=== PATIENT | female | born 1945 ===

== ENCOUNTER 2016-09-08 10:32 | Inpatient (IN) | payer MEDICARE ==
[~2016-09-08] VITALS: Ht 162.5 cm; Wt 44.1 kg
--- NOTE | ~2016-09-08 | DS ---
[place], [place] DISCHARGE SUMMARY NAME: YEHUDA AMANDA [facility] #: [id number] UNIT #: [id number] ROOM: 311 DOCTOR: FRANCISCO JAVIER MORELAND MD BIRTHDATE: [birth year] DOS: 09/11/2016 CHIEF COMPLAINT: "I'm sick. I don't know what's wrong with me." HISTORY OF PRESENT ILLNESS: This is a 70-year-old white female who presented to the Emergency Room at [facility] due to worsening changes in mental status and possible placement. The patient reported that she has been feeling sick, but was not able to explain exactly what she meant by this. She has been very anxious and increasingly short of breath. She has not been sleeping or eating well and does seem to have worsening depression. The patient also was found to be very confused and disoriented. She was admitted to further evaluate her mental status and determine the appropriate placement plan. PAST MEDICAL HISTORY: Remarkable for significant generalized anxiety, COPD, depression, nicotine abuse and hypertension. SUMMARY OF THE HOSPITAL COURSE: The patient was initially admitted to the hospital on the U and her Celexa was increased by Floyd Cano. Additionally her BuSpar was changed from p.r.n. to schedule at a dose of 5 mg 3 times daily. After evaluating her, though after the first night it was quite evident that her sleep and appetite were very poor and the depression was significant, so the Celexa was discontinued in lieu of Remeron 15 mg at bedtime, knowing that this would dramatically improve sleep and appetite. Additionally, her confusion was such that it was evident that dementia was present, so Exelon patch 4.6 mg was initiated to help maintain or slow the progression of cognitive loss, behavioral changes and also it will improve ADL maintenance. Because of the significant dementia Dr. Harvinder Srinivasan, psychologist, was consulted for competency and he did feel that a guardianship would be warranted. Family was very supportive and was willing to make every effort to have her return home and put into place factors that would improve her ability to remain safe at home. Once this was done it was felt that she could safely return to her home situation. FINAL DIAGNOSES: Major depression, recurrent; generalized anxiety disorder and Alzheimer dementia. DISPOSITION: All of her prescriptions have been escribed to [place] [facility]. She will follow up in the community per Transmitter Supervisor. [place], [place] DISCHARGE SUMMARY NAME: YEHUDA AMANDA UNIT #: [id number] ROOM: 311 DOCTOR: FRANCISCO JAVIER MORELAND MD BIRTHDATE: [birth year] FRANCISCO JAVIER MORELAND MD CM:DISCHARG 2 43 FRANCISCO JAVIER MORELAND MD 09/11/161943 interface
--- NOTE | ~2016-09-08 | PR ---
[place], [place] PROGRESS NOTE NAME: YEHUDA AMANDA UNIT #: [id number] ROOM: 311 DOCTOR: JAS ARCEO BIRTHDATE: [birth year] DOS: 09/10/2016 CHIEF COMPLAINT: The patient was nonverbal. She is sleeping in the 24-hour observation room. SUMMARY OF VISIT: The patient was assessed in the observation room. She has been physically aggressive, redirectable, but difficult at times to redirect, accusatory towards staff, very delusional and paranoid. Dr. Srinivasan saw her yesterday and deemed her to be incompetent to make decisions about her healthcare or wellbeing. 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 MENTAL STATUS: She is alert to name only, wildly labile with her mood, physical aggression, can get very agitated, almost manicky. PLAN: I started her on Remeron and Exelon yesterday. She is tolerating these well. I also added BuSpar because she has got some COPD, breathing issues going on. I was hoping that that would help with anxiety related to breathing, we will see how this goes. I am going to ahead and start some Risperdal 0.5 mg q.12 to see if I can bring down the physical aggression and psychosis. Also found that she is severely vitamin D deficient, I will get her started on some vitamin D, and double check and make sure that we have had a urine on her to rule out UTI that is making this worse. Son did mention that this has been progressively getting worse and this behavior is not new to him. We will continue to try to redirect and go from there. CANDELARIA ARCEO CNP CM:PNTRANS [id number] JAS ARCEO 09/10/[id number] interface
--- NOTE | ~2016-09-08 | CON ---
[place], [place] REPORT OF CONSULTATION [facility]: [id number] UN[facility] #: [id number] ROOM: 311 DOCTOR: YAMINI URIAS ED.D (MATHEW) BIRTHDATE: [birth year] DOS: 09/09/2016 HISTORY OF PRESENT ILLNESS: The patient is a 70-year-old female referred by Dr. Moreland for competency evaluation. At the present time, this patient is on the [facility] Unit at [facility]. She is and has 1 son and 1 granddaughter. She presently resides in [place], [place]. She was employed at one time at [employer] in [place], [place]. Her family physician is Dr. Yadav in [place], [place]. Her medical history is pertinent for dementia, hypertension, anxiety, depression and COPD. She is allergic to MORPHINE and SULFA type drugs. MEDICATIONS: Include verapamil, Ativan, lisinopril, Celexa, Spiriva, Zofran, Symbicort, Megace, and Zantac. SOCIAL HISTORY: This patient does not appear to have any significant substance abuse issues, which will impair her cognitive status. MENTAL STATUS EXAMINATION: This patient was awake, alert and oriented to person only. She thought she was in [place], [place]. She had no idea of the year or the date. She had no idea of the president. She indicated to me that she had a great deal of difficulty with her memory, and she could not remember my name after numerous repetitions on my part. She clearly suffers from dementia and clearly is not competent to make informed healthcare decisions. I did complete guardianship papers and discussed this with her . DIAGNOSES: Major neurocognitive disorder -- Alzheimer's disease. RECOMMENDATIONS: In my opinion, this patient is not competent to make informed healthcare decisions. Thank you very much for this consult. YAMINI URIAS ED.D CM:CONSTR:REPORT OF CONSULTATION 1058 09/10/16 0333 interface FRANCISCO JAVIER MORELAND MD
--- NOTE | ~2016-09-08 | WRIGHTHP ---
[place], [place] PATIENT HISTORY AND PHYSICAL EXAM NAME: YEHUDA AMANDA [facility] #: [id number] UNIT #: [id number] ROOM: 311 DOCTOR: JAS ARCEO BIRTHDATE: [birth year] DOS: 09/08/2016 HISTORY OF PRESENT ILLNESS: This is a 70-year-old female presenting to [facility] ER for Behavior Health placement. The patient states she was taken to the hospital because she was very sick and unable to explain why she was sick. She was unsure why she was brought to the unit. States that she has a history of anxiety and her anxiety has become worse with increasingly shortness of breath. She does have a diagnosis of COPD with tobacco abuse and states that she has been using her inhalers nonstop and that her anxiety is worse. I am wondering if the steroid medication and the inhalers since she is using them more than she should is stimulating her feelings of anxiety as well. Her is a otr owner operator truck driver and is at home for long periods of time. The patient apparently has been noncompliant with her medications and she is on copious amounts of benzos, lorazepam, Klonopin, low dose Celexa, p.r.n. BuSpar, which is doing nothing that needs to be scheduled. The patient was admitted to behavioral health unit to rule out organic factors and stabilize on medications. PAST MEDICAL HISTORY: Anxiety, COPD, depression, tobacco abuse, and hypertension. DIAGNOSES: Generalized anxiety and altered mental status. MENTAL STATUS: The patient is alert and oriented to person, not place or time quite tearful asking for her , then talking nonsensical, difficult to redirect at times. Body is very cachectic. She states that her sleep is good, then bad, then good, then bad. Poor appetite, very tearful, very anxious. PLAN: Last night, I increased her Celexa. I am going to actually discontinue the Celexa and switch it to Remeron to help with depression, aid in sleep and stimulate her appetite. After my assessment this morning, I have asked that Dr. Srinivasan be consulted for competency. I am going to go ahead and start her on Exelon patch 4.6 mg q.a.m. Looks like the labs from [place] are within normal limits as far as her UA, CBC, CMP. There is a CT of the head; however, ordered as well. I am going to go ahead and order her BuSpar scheduled. This will help some of her anxiety, but with her COPD it will increase her drive to breathe and maybe make her breath a little more satisfying, so she does not need the inhalers this much, which could be triggering some of her anxiety and panic attacks, but also give her some relief with her breathing. We will see how she does over the next 24 hours and go from there. [place], [place] PATIENT HISTORY AND PHYSICAL EXAM NAME: YEHUDA AMANDA UNIT #: [id number] ROOM: 311 DOCTOR: JAS ARCEO BIRTHDATE: [birth year] CANDELARIA ARCEO CNP CM:HISPHYS:PATIENT HISTORY AND PHYSICAL EXAMINATION [id number] JAS ARCEO 09/10/16 0649 interface
[2016-09-08] MEDS ORDERED: ATIVAN0.5 MG PO (11:39)
[2016-09-08] MEDS ORDERED: ISOPTIN SR180 M1 PO (11:39)
[2016-09-08] MEDS ORDERED: KLONOPIN0.5 MG PO (11:39)
[2016-09-08] MEDS ORDERED: CELEXA20 MG PO (11:40)
[2016-09-08] MEDS ORDERED: SPIRIVA18 MCG PO (11:40)
[2016-09-08] MEDS ORDERED: Zofran4 MG PO (11:41)
[2016-09-08] MEDS ORDERED: SYMBICORT1 AE1 INH (11:42)
[2016-09-08] MEDS ORDERED: MEGACE 40400 MG/10 PO (11:43)
[2016-09-08] MEDS ORDERED: ZANTAC 150150 MG PO (11:44)
[2016-09-08] MEDS ORDERED: BUSPIRONE10 MG PO (11:45)
[2016-09-08 12:33] VITALS: BP 150/83
[2016-09-08] MEDS ORDERED: VOLTAREN GEL1% TP (15:22)
[2016-09-08] MEDS ORDERED: ACCUNEB 0.1.25 MG/1 INH (15:27)
[2016-09-08] MEDS ORDERED: VERAPAMIL HCL120 M1 PO (15:31)
[2016-09-08 20:00] VITALS: BP 126/77
[2016-09-09] MEDS ORDERED: MEGACE 40400 MG/10 PO (04:53)
[2016-09-09 07:48] LABS: CHOLESTEROL 188 mg/dL (<200); HDL CHOLESTEROL 56 mg/dl (40-60); LDL CHOLESTEROL 119 mg/dL (9-159); TRIGLYCERIDES 66 mg/dl (<150); VLDL CHOLESTEROL 13 mg/dL (6-40)
[2016-09-09 08:45] LABS: HEMOGLOBIN A1c 5.5 % (4.8-5.6)
[2016-09-09 09:21] LABS: VITAMIN D, 25-HYDROXY 22.7 ng/mL (30-100)
[2016-09-09 09:22] LABS: FOLIC ACID 21.84 ng/mL (>5.38)
[2016-09-09 20:00] VITALS: BP 147/83
[2016-09-10 08:00] VITALS: BP 113/55
[2016-09-10 19:45] VITALS: BP 90/56
[2016-09-11] MEDS ORDERED: BUSPAR5 MG PO (07:59)
[2016-09-11] MEDS ORDERED: RISPERIDONE0.5 MG PO (07:59)
[2016-09-11] MEDS ORDERED: MIRTAZAPINE15 M2 PO (07:59)
[2016-09-11] MEDS ORDERED: VITAMIN D50000 I3 PO (07:59)
[2016-09-11] MEDS ORDERED: RIVASTIGMINE1 EACH T (07:59)
[2016-09-11 08:00] VITALS: BP 111/50
== END 2016-09-11 14:35 | disposition home or self-care (01) | DRG 57 ==
LOC: 3N 10:32
PROVIDERS: Nurse Practitioner Adult Health
DX: G30.9 Alzheimer's disease, unspecified (principal); F33.9 Major depressive disorder, recurrent, unspecified; J44.9 Chronic obstructive pulmonary disease, unspecified; F01.50 Vascular dementia, unspecified severity, without behavioral disturbance, psychotic disturbance, mood disturbance, and anxiety; F41.1 Generalized anxiety disorder; F02.80 Dementia in other diseases classified elsewhere, unspecified severity, without behavioral disturbance, psychotic disturbance, mood disturbance, and anxiety; I10 Essential (primary) hypertension; F17.200 Nicotine dependence, unspecified, uncomplicated; Z88.2 Allergy status to sulfonamides; Z88.6 Allergy status to analgesic agent; Z79.899 Other long term (current) drug therapy; Z79.1 Long term (current) use of non-steroidal anti-inflammatories (NSAID); Z79.51 Long term (current) use of inhaled steroids